=== PATIENT | male | born 1950 | race Caucasian/White ===

== ENCOUNTER 2017-03-13 17:47 | Inpatient (IN) | payer OTHER ==
--- NOTE | ~2017-03-13 | HP ---
Unit #: [id number] #: [id number] Patient: GRIS RUIZ [id number] [address] [place], [place] [address] [id number] I MR#: [id number] NAME: GRIS RUIZ ROOM: [address] Age: 66 Sex: M Admission Date: 03/13/2017 : 1950 Attending Physician: Natacha Garces M.D. Primary Care Physician: Emerita Thakur M.D. HISTORY AND PHYSICAL CHIEF COMPLAINT Accidental overdose, alcohol intoxication, urinary tract infection. HISTORY This pleasant 66-year-old male with CAD, hypertension, alcohol abuse, is admitted for alcohol intoxication and overdose. Patient does not really remember what occurred today. I am told that the patient was found unconscious in his pickup truck, possibly by daughter. Family states that they believed the patient was suicidal, had taken extra Percocet, Xanax, along with drinking alcohol. He was brought to this emergency department this evening where initially he was poorly responsive but now is awake and alert, complaining of pain at the catheter site. Does note recent dysuria, and his urinalysis does show significant pyuria for a cath specimen. His initial alcohol level was 341. In the ER he was bolused with IV fluids, and given vancomycin, Rocephin and referred for admission. His initial vital signs were normal. PAST MEDICAL HISTORY 1. Hyperlipidemia. 2. Alcohol-induced pancreatitis. 3. Essential hypertension. 4. Anxiety and depression. 5. Gastroesophageal reflux disease. 6. CAD, status post CABG. Patient was admitted 04/2016 for NSTEMI requiring PCI and stent. Will obtain details. 7. Asthma. 8. 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 9. Cholecystectomy. 10. Bilateral shoulder surgery. 11. Bilateral total knee replacements. 12. Multiple hernia repairs. ALLERGIES Adhesives. HOME MEDICATIONS 1. Ventolin two puffs q.4 h. p.r.n. 2. Xanax 0.5 mg q.i.d. p.r.n. 3. Aspirin 81 mg daily. 4. Lipitor 80 mg q.h.s. 5. Prozac 20 mg daily. 6. Lasix 40 mg b.i.d. Unit #: [id number] #: [id number] Patient: GRIS RUIZ 7. Metoprolol 50 mg b.i.d. 8. Brilinta 90 mg b.i.d. 9. Imdur 30 mg q.h.s. 10. Oxycodone 5 mg q.4 h. p.r.n. FAMILY HISTORY Negative for pancreatitis. SOCIAL HISTORY The patient lives alone, states that he drinks a half pint a day of alcohol. He does not smoke. REVIEW OF SYSTEMS Notable for dysuria, CAD, hypertension, hyperlipidemia, anxiety, depression, CAD, asthma, abovementioned surgeries. All other systems were reviewed and otherwise negative. PHYSICAL EXAMINATION GENERAL: A 66-year-old male who is now awake and alert, currently in no acute distress. VITAL SIGNS: Temperature 98.8. Pulse 72. Respirations 18. Blood pressure 133/72. O2 saturation 93% on room air. HEENT EXAMINATION: Eyes PERRLA, extraocular muscles are intact. Pharynx is benign. NECK: Supple, without adenopathy or thyromegaly. CHEST: Clear. CARDIAC: Normal S1 and S2, without S3, S4 or murmur. ABDOMEN: Bowel sounds are present. No hepatosplenomegaly, tenderness or masses. EXTREMITIES: With mild edema. Pedal pulses are diminished. No ulcers on the feet. NEUROLOGIC EXAM: Patient is now awake and alert. His cranial nerves are intact. He has equal strength throughout. DIAGNOSTIC STUDIES LABORATORY: Hematocrit is 41.8, MCV 104.3, white blood count is 15, normal platelet count. Normal coags. SMA-12: Glucose 124, potassium 3.3, magnesium 1.5, albumin is 3.1, lactic acid 3.9, BNP 141, ammonia level is negligible, alcohol is 341. ABG pH 7.47, pCO2 30, pO2 90, O2 saturation 94.3% on room air. Cardiac markers are negative. Urine tox screen positive for benzodiazepines and opiates which are prescribed apparently. Urinalysis positive leukocyte esterase, 10 to 25 white cells, without significant red cells, 4+ bacteria on catheterized specimen. IMAGING: Head CT no acute disease. Chest x-ray stable cardiomegaly with small bilateral pleural effusions. CARDIOVASCULAR: EKG shows a normal sinus rhythm, rate 90, nonspecific ST wave abnormalities. ASSESSMENT 1. Possible accidental versus intentional overdose. The family members told the ER physician the patient had suicidal ideation. Patient adamantly denies increasing depression or suicidal ideation. 2. Alcohol abuse with intoxication. 3. Coronary artery disease, status post coronary artery bypass graft and Unit #: [id number] #: [id number] Patient: GRIS RUIZ percutaneous coronary intervention/stent. 4. Asthma. 5. Gastroesophageal reflux disease. 6. Essential hypertension. 7. Urinary tract infection. 8. Elevated lactic acid. I doubt that patient is septic however. 9. Hypokalemia. 10. Chronic back pain. PLANS 1. IV fluids, Rocephin, one dose of vancomycin and start Flomax. Will remove Light catheter in the morning. 2. Patient is on a 72-hour hold until [facility] sees in the morning. 3. Replace potassium and check magnesium. 4. Recheck lactic acid level. 5. DVT prophylaxis. 6. Obtain NAUN report. 7. Benzos and vitamins. 8. Obtain cardiac catheterization details from last year. Dictated by Natacha Garces M.D. AML/cf TD: 03/13/2017 22:11 JOB #: [id number] HISTORY AND PHYSICAL Page 1 of 1 X Natacha Garces MD X HISTORY AND PHYSICAL
--- NOTE | ~2017-03-13 | CR72 ---
[facility] A Service of [facility] RADIOLOGY TEXT RESULTS PATIENT: GRIS RUIZ LOCATION: [facility] 316- : 48 UNIT #: [id number] AGE: [address]: Baldev Wong MD SEX: M ORDER DR: [id number] [facility] [address]. [place], [place] [address] [id number] I MR#: [id number] #: [id number] NAME: GRIS RUIZ : 1950 SEX: M STUDY DATE/TIME: 03/13/2017 18:19 UNIT: [address] ROOM: [facility] STUDY DESCRIPTION: CR Chest Single View Portable Attending Physician: Baldev Wong M.D. Ordering Physician: Aracely Kennedy M.D. Primary Care Physician: Emerita Thakur M.D. MEDICAL IMAGING REPORT This report is preliminary unless electronic signature is present EXAM Single view chest INDICATIONS Altered mental status. Shortness of air with activity. FINDINGS Single portable AP view of the chest compared to 04/11/2016 and 05/05/2016. Heart and mediastinal contours are unchanged. The heart is mildly enlarged. There are some fractured median sternotomy wires, however this is unchanged. Small bilateral pleural effusions are noted. No pneumothorax. IMPRESSION 1. Stable cardiomegaly in a patient status post CABG. 2. Small bilateral pleural effusions. Dictated by... Elliott Dhillon M.D. THIS IS AN ELECTRONICALLY VERIFIED REPORT Elliott Dhillon M.D. at 03/14/2017 3:06 PM BHAVYA/joselin TD: 03/14/2017 10:46 JOB #: [id number] MEDICAL IMAGING REPORT Page 1 of 1 COPY
--- NOTE | ~2017-03-13 | EKG ---
PATIENT: GRIS RUIZ UNIT #: [id number] Ventricular Rate: 90 BPM Atrial Rate: 90 BPM P-R Interval: 168 ms QRS Duration: 94 ms Q-T Interval: 404 ms QTC Calculation(Bezet): 494 ms P [place]: 35 degrees Calculated R [place]: -40 degrees Calculated T [place]: 67 degrees Diagnosis Line: Normal sinus rhythm Diagnosis Line: Left axis deviation Diagnosis Line: Nonspecific ST abnormality Diagnosis Line: Prolonged QT Diagnosis Line: Abnormal ECG Diagnosis Line: When compared with ECG of 14-APR-2016 05:33, Diagnosis Line: T wave inversion no longer evident in Diagnosis Line: Anterolateral leads Diagnosis Line: Confirmed by JAKE GOMEZ MD ([id number]) on Diagnosis Line: 03/14/2017 11:10:02 AM INTERPRETING MD: JASON ALLEN
--- NOTE | ~2017-03-13 | DS ---
Unit #: [id number] #: [id number] Patient: GRIS RUIZ [id number] [address] [address] [id number] I MR#: [id number] NAME: GRIS RUIZ ROOM: 316 Age: 66 Sex: M Admission Date: 03/13/2017 : 1950 Discharge Date: 03/16/2017 Attending Physician: Baldev Wong M.D. Primary Care Physician: Emerita Thakur M.D. DISCHARGE SUMMARY DISCHARGE DIAGNOSES 1. Accidental overdose. 2. Alcohol abuse with intoxication. 3. Chronic back pain. 4. Gastroesophageal reflux disease. 5. Hypertension. HOSPITAL COURSE The patient is a 66-year-old man with a past medical history significant for CAD, hypertension, alcohol abuse, anxiety, chronic pain, presents to [facility] on 03/13/2017 after he was found unconscious by his pickup truck. His alcohol level was 341. Family member suspected that he was possibly suicidal. Patient denies suicidal ideation. The patient was placed on 72 hour hold. [facility]. The patient denied depression, denied suicidal ideation. The patient was given substance abuse counseling and recommended followup with [facility]. During his admission, the patient was also noted to have a urinary tract infection with E. coli, which was pansensitive. The patient received IV Rocephin while in the hospital, and the patient will be discharged on cefadroxil 1 g oral tablets for five days. At time of discharge, patient's vitals were stable. The patient was comfortable, had good affect. DISCHARGE MEDICATIONS 1. Albuterol inhaler, two puffs q.4 p.r.n. 2. Prozac 20 mg p.o. daily. 3. Xanax 0.5 mg q.i.d. p.r.n. 4. Metoprolol 50 mg p.o. b.i.d. 5. Furosemide 40 mg p.o. once daily. 6. Lipitor 80 mg p.o. at bedtime. 7. Aspirin 81 mg p.o. daily. 8. Oxycodone 5 mg p.o. q.4 p.r.n. for pain. 9. Brilinta 90 mg p.o. b.i.d. 10. Isosorbide mononitrate 30 mg p.o. at bedtime. 11. Cefadroxil 1 g tab, one p.o. once daily for five days. DISCHARGE INSTRUCTIONS Patient to follow with primary care physician. DISCHARGE INSTRUCTIONS Follow up with [facility]. Counseling information and phone number is given to the patient. Unit #: [id number] #: [id number] Patient: GRIS RUIZ Dictated by... Davi Hermosillo M.D. for Baldev Wong M.D. AM/anamaria TD: 03/21/2017 06:15 JOB #: [id number] DISCHARGE SUMMARY Page 1 of 1 X X DISCHARGE SUMMARY
--- NOTE | ~2017-03-13 | CT71 ---
[facility] RADIOLOGY TEXT RESULTS PATIENT: GRIS RUIZ LOCATION: [facility] : 48 UNIT #: [id number] AGE: [address]: Baldev Wong MD SEX: M ORDER DR: [id number] [address] [address] [id number] I MR#: [id number] #: [id number] NAME: GRIS RUIZ : 1950 SEX: M STUDY DATE/TIME: 03/13/2017 21:07 UNIT: [address] ROOM: [address] [place] [address] DESCRIPTION: CT Head Wo Contrast Attending Physician: Badlev Wong M.D. Ordering Physician: Aracely Kennedy M.D. Primary Care Physician: Emerita Thakur M.D. MEDICAL IMAGING REPORT This report is preliminary unless electronic signature is present EXAM CT head INDICATIONS Confusion for [address] head without contrast. Axial noncontrast images were obtained from the skull base to the vertex. This CT exam was performed with one or more of the following radiation dose reduction techniques: automatic exposure control, adjustment of mA and/or kV according to patient size, and iterative reconstruction. COMPARISON CT head dated 08/26/2014. FINDINGS Ventricular size and configuration are normal. There is no evidence of acute infarct or hemorrhage. There are no extraaxial fluid collections. No mass lesion or mass effect is seen. There are no skull fractures. There is some mild mucosal thickening in the left frontal sinuses. IMPRESSION Normal noncontrast head CT. Dictated by... Elliott Dhillon M.D. [facility] RADIOLOGY TEXT RESULTS PATIENT: GRIS RUIZ LOCATION: [facility] : 48 UNIT #: [id number] AGE: [address]: Baldev Wong MD SEX: M ORDER DR: THIS IS AN ELECTRONICALLY VERIFIED REPORT Elliott Dhillon M.D. at 03/14/2017 3:08 PM Caridad TD: 03/14/2017 12:11 JOB #: [id number] MEDICAL IMAGING REPORT Page 1 of 1 COPY
[~2017-03-13 17:47] MED LIST: ALBUTEROL17 GM INH; ALDACTONE25 MG PO; ALPRAZOLAM PO; ALPRAZOLAM1 MG PO; AMBIEN CR PO; AUGMENTIN PO; BAYER ASPIRIN325 M1 PO; BRILINTA90 MG PO; CYANOCOBAL1000 MCG/1 INJ; ELIQUIS5 MG PO; FLUOXETINE HCL20 M1 PO; HYDROCODON-ACE1 EAC5; IMDUR-ER30 M2 PO; LASIX PO; LEVAQUIN750 MG PO; LIPITOR PO; LIPITOR20 MG DOB; LIPITOR20 MG PO; LISINOPRIL2.5 MG PO; LO-DOSE ASPIRIN81 M1 PO; LORTAB 10-5001 EACH PO; MAG-OX 400400 M1 PO; MAGNESIUM400 MG PO; METOPROLOL TAR25 MG DOB; METOPROLOL TAR25 MG PO; METOPROLOL TART25 MG PO; MULTIPLE VITAMI1 T11 PO; NITROSTAT0.4 MG; ONDANSETRON ODT4 MG PO; PERCOCET 10/3251 TAB PO; PERCOCET10 PO; POTASSIUM CHLO10 ME1 PO; PREVACID PO; PROTONIX PO; PROZAC PO; ST JOSEPH ASPIR81 M1 PO; TOPROL XL PO; XANAX0.5 M1 PO; ZESTRIL2.5 M1 PO
[2017-03-13 18:00] LABS: ARTERIAL BLD GAS O2 SATURATION 94.3 % (90.0-100.0); ARTERIAL BLOOD GAS ALLEN TEST NORMAL; ARTERIAL BLOOD GAS ART SITE RIGHT RADIAL; ARTERIAL BLOOD GAS DELIVERY ROOM AIR; ARTERIAL BLOOD GAS HCO3 22.2 mmol/L; ARTERIAL BLOOD GAS MET HB 0.7 %sat (0.0-2.0); ARTERIAL BLOOD GAS PCO2 30.7 mmHg (35.0-45.0); ARTERIAL BLOOD GAS PO2 90.4 mmHg (80.0-100); ARTERIAL BLOOD GAS pH 7.467 (7.350-7.450); ARTERIAL DRAW? YES
[2017-03-13] MEDS ORDERED: OXYCODONE HCL15 MG PO (19:27)
[2017-03-13 19:31] LABS: URINE SOURCE CLEAN CATCH
[2017-03-13 19:33] LABS: BASOPHIL# 0.1 X10e3 (0-0.3); BASOPHIL% 0.6 % (0-2.5); DIFF IND NO; EOSINOPHIL# 0.2 X10e3 (0-0.7); EOSINOPHIL% 1.4 % (0.0-7.0); HEMATOCRIT 41.8 % (38.0-50.0); HEMOGLOBIN 13.7 gm/dL (13.0-16.0); LYMPHOCYTE# 2.3 X10e3 (1.0-3.5); LYMPHOCYTE% 15.8 % (17.0-45.0); MEAN CELL VOLUME 104.3 FL (83-96); MEAN CORPUSCULAR HEMOGLOBIN 34.3 PG (28-34); MEAN CORPUSCULAR HGB CONC 32.9 g/dL (30-36); MEAN PLATELET VOLUME 8.4 FL (6.5-11.5); MONOCYTE# 0.9 X10e3 (0-1.0); MONOCYTE% 6.1 % (3.0-12.0); NEUTROPHIL# 11.3 X10e3 (1.5-7.1); NEUTROPHIL% 76.1 % (40-75); PLATELET COUNT 365 X10e3 (140-420); RED BLOOD COUNT 4.01 X10e (3.90-5.60); RED CELL DISTRIBUTION WIDTH 13.5 % (11.0-15.5); WHITE BLOOD COUNT 14.9 X10e3 (4.0-10.5)
[2017-03-13 19:35] LABS: URINE APPEARANCE CLOUDY; URINE BILIRUBIN NEG (NEG); URINE BLOOD NEG (NEG); URINE COLOR YELLOW; URINE GLUCOSE NEG (NEG); URINE KETONE NEG (NEG); URINE LEUKOCYTE ESTERASE 2+ (NEG); URINE NITRATE NEG (NEG); URINE PH 5.5 (5-8); URINE PROTEIN NEG (NEG); URINE SPECIFIC GRAVITY 1.012 (1.003-1.035)
[2017-03-13 19:39] LABS: CULTURE INDICATED? YES; URBCS1 AUWI 0-2 /[HPF] (0-2); URINE BACTERIA AUWI 4+ (NEGATIVE); URINE SQUAMOUS EPITHELIAL CELL NONE SEEN /[HPF]
[2017-03-13 19:43] LABS: POC - CKMB 1.8 ng/mL (0.0-7.9); POC - TROPONIN <0.05 ng/mL (<=0.05)
[2017-03-13 19:47] LABS: INR 1.1; PARTIAL THROMBOPLASTIN TIME 25.3 SECONDS (23.5-31.3); PROTHROMBIN TIME (PATIENT) 11.4 SECONDS (10.0-11.7)
[2017-03-13 19:57] LABS: AMPHETAMINE NEG (NEG); BARBITURATES NEG (NEG); BENZODIAZEPINES POS (NEG); COCAINE NEG (NEG); MARIJUANA NEG (NEG); OPIATES POS (NEG); TRICYCLIC ANTIDEPRESSANTS NEG (NEG); U METHADONE NEG (NEG)
[2017-03-13 19:58] LABS: ALBUMIN SERUM 3.1 g/dL (3.5-5.0); BILIRUBIN, DIRECT 0.1 mg/dL (0.0-0.2); BILIRUBIN,INDIRECT 0.5 mg/dL (0.0-0.9); BILIRUBIN,TOTAL 0.6 mg/dL (0.2-2.0); BUN/CREATININE RATIO 17.5; CALCIUM SERUM 8.5 mg/dL (8.4-10.2); CREATININE SERUM 0.8 mg/dL (0.6-1.4); GLOM FILT RATE Estimated 91.8 mL/min (>60); MAGNESIUM 1.5 mg/dL (1.6-3.0); POTASSIUM 3.3 mmol/L (3.5-5.1); PROTEIN TOTAL SERUM 6.2 g/dL (6.0-8.3)
[2017-03-14 14:28] LABS: HEMATOCRIT 36.8 % (38.0-50.0); HEMOGLOBIN 11.9 gm/dL (13.0-16.0); MEAN CELL VOLUME 104.1 FL (83-96); MEAN CORPUSCULAR HEMOGLOBIN 33.7 PG (28-34); MEAN CORPUSCULAR HGB CONC 32.4 g/dL (30-36); MEAN PLATELET VOLUME 8.8 FL (6.5-11.5); RED BLOOD COUNT 3.54 X10e (3.90-5.60); RED CELL DISTRIBUTION WIDTH 13.8 % (11.0-15.5); WHITE BLOOD COUNT 15.2 X10e3 (4.0-10.5)
[2017-03-14 15:44] LABS: CALCIUM SERUM 8.1 mg/dL (8.4-10.2); CREATININE SERUM 0.5 mg/dL (0.6-1.4); GLOM FILT RATE Estimated 111.4 mL/min (>60); MAGNESIUM 1.4 mg/dL (1.6-3.0); POTASSIUM 3.3 mmol/L (3.5-5.1)
[2017-03-14 16:04] LABS: MB 4.9 ng/ml
[2017-03-15 07:11] LABS: BUN/CREATININE RATIO 18.57; CALCIUM SERUM 8.2 mg/dL (8.4-10.2); CREATININE SERUM 0.7 mg/dL (0.6-1.4); MAGNESIUM 1.7 mg/dL (1.6-3.0); POTASSIUM 4.3 mmol/L (3.5-5.1)
[2017-03-16] MEDS ORDERED: FUROSEMIDE40 MG PO (15:38)
[2017-03-16] MEDS ORDERED: FLOMAX0.4 M1 PO (15:38)
[2017-03-16] MEDS ORDERED: DURICEF500 MG PO (15:40)
== END 2017-03-16 18:17 | disposition home or self-care (01) | DRG 918 ==
LOC: CED 17:47 → C3A PCU 21:34 → CEDOF 21:34 → CED 21:34 → C3A PCU 22:00 → CEDOF 22:00 → C3A PCU 22:19
PROVIDERS: Internal Medicine; Student in an Organized Health Care Education/Training Program
PROC: 05H533Z Insertion of Infusion Device into Right Subclavian Vein, Percutaneous Approach (ICD-10-PCS; principal; 2017-03-14)
PROC: B546ZZA Ultrasonography of Right Subclavian Vein, Guidance (ICD-10-PCS; 2017-03-14)
DX: T40.2X1A Poisoning by other opioids, accidental (unintentional), initial encounter (principal); I10 Essential (primary) hypertension; N39.0 Urinary tract infection, site not specified; T42.4X1A Poisoning by benzodiazepines, accidental (unintentional), initial encounter; F10.129 Alcohol abuse with intoxication, unspecified; I25.10 Atherosclerotic heart disease of native coronary artery without angina pectoris; Y90.8 Blood alcohol level of 240 mg/100 ml or more; E78.5 Hyperlipidemia, unspecified; F41.9 Anxiety disorder, unspecified; F32.9 Major depressive disorder, single episode, unspecified; K21.9 Gastro-esophageal reflux disease without esophagitis; Z95.1 Presence of aortocoronary bypass graft; J45.909 Unspecified asthma, uncomplicated; Z90.49 Acquired absence of other specified parts of digestive tract; Z96.653 Presence of artificial knee joint, bilateral; Z79.82 Long term (current) use of aspirin; E87.6 Hypokalemia; M54.9 Dorsalgia, unspecified; G89.29 Other chronic pain; B96.20 Unspecified Escherichia coli [E. coli] as the cause of diseases classified elsewhere
CPT/HCPCS: 36415; 36600; 70450; 71010; 80048; 80076; 80307; 81003; 82140; 82150; 82550; 82553; 82803; 82947; 83605; 83735; 83880; 84484; 85025; 85027; 85610; 85730; 87040; 87086; 87088; 87186; 93005; 94760; 96374; 96375; 97110; 97116; 97162; 99285; G0480; G8978-GP; G8979-GP; J0696; J1650; J2405; J3370; J3411; J3475